=== PATIENT | female | born 1980 | race Caucasian/White ===

== ENCOUNTER 2017-01-07 14:41 | Outpatient (CLI) | payer BC ==
--- NOTE | 2017-01-07 15:21 | RAD ---
LUMBAR SPINE TWO VIEWS: History: Lumbar radiculopathy. FINDINGS: Lumbar vertebrae maintain normal height. There is a grade I to II spondylolisthesis of L5-S1 with los s of disc space at L5-S1. There is posterior spondylolysis at L5-S1. The other vertebral bodies maintain normal alignment. Disc spaces are otherwise preserved. IMPRESSION: Grade I to II spondylolisthesis at L5-S1 with loss of disc space and posterior spondylolysis at this level. POS: JOHN
--- NOTE | 2017-01-07 15:28 | CT ---
CT LUMBAR SPINE: Technique: Multiple axial tomograms were obtained through the lumbar spine with multiplanar reconstru ction. History: Lumbar radiculopathy. FINDINGS: There is a grade I spondylolisthesis at L5-S1. There is posterior spondylolysis seen bilaterally at L 5-S1. There is associated broad based disc bulge at L5-S1 which flattens the anterior thecal sac and does mildly displace both traversing S1 nerve roots. This diffuse disc bulge does extend into the for brandt bilaterally producing bilateral foraminal stenosis at L5-S1. L4-5: Mild disc bulge. Facet and ligamentous hypertrophy. Mild central canal stenosis. L3-4: Mild disc bulge. No significant central canal or foraminal stenosis. L2-3: No significant disc bulge or protrusion. L1-2: No significant disc bulge or protrusion. IMPRESSION: Mild anterolisthesis at L5-S1 with posterior spondylolysis bilaterally. Associated broad based disc b ulge at this level with bilateral foraminal stenosis. POS: JOHN
== END 2017-01-07 14:42 | disposition home or self-care (01) ==
LOC: TBSIIMAG 14:41
PROVIDERS: ATTEND Surgery
DX: M51.17 Intervertebral disc disorders with radiculopathy, lumbosacral region (principal); M47.27 Other spondylosis with radiculopathy, lumbosacral region; M43.17 Spondylolisthesis, lumbosacral region
CPT/HCPCS: 72100; 72131

== ENCOUNTER 2017-02-12 06:27 | Inpatient (IN) | payer BC ==
[2017-02-12] MEDS ORDERED: Scopolamine 1.5 mg/72 hour Patch ONE (06:33)
[2017-02-12] MEDS ORDERED: Midazolam HCl 2 mg/2 ml Vial ONE (06:35)
[2017-02-12] MEDS ORDERED: Fentanyl 100 MCG/2 ML VIAL ONE ×4 (06:35→13:11)
[2017-02-12] MEDS ORDERED: Thrombin 5000 UNITS/5 ML VIAL ONE (06:37)
[2017-02-12] MEDS ORDERED: Bacitracin Zinc Ointment 30 gm TUBE ONE (06:37)
[2017-02-12] MEDS ORDERED: Sodium Chloride 0.9% 10 ML ONE (06:37)
[2017-02-12] MEDS ORDERED: CEFAZOLIN/Water 2 GM/20 ML SYRINGE ONE (06:57)
[2017-02-12 07:17] LABS: #Eosinphils 0.2 thou/uL (0.0-0.7); #Monocytes 0.5 thou/uL (0.11-0.59); #Neutrophils 3.3 thou/uL (1.40-6.50); %Basophils 0.4 % (0.0-1.0); %Lymphocytes 32.7 % (21.0-51.0); %Monocytes 8.8 % (0.0-10.0); %Neutrophils 55.1 % (42.0-75.0); Hemoglobin 13.9 g/dL (12.0-16.0); Mean Corpuscular HGB CONC 33.8 g/dL (32.0-36.0); Mean Corpuscular Volume 91.9 fl (81.0-99.0); Mean Platelet Volume 5.7 fL (7.4-10.4); Platelet Count 366 thou/uL (130-400); RBC Distribution Width 11.3 % (11.5-14.5)
[2017-02-12 07:26] LABS: PTT 27.8 SEC (22.9-36.1); Prothrombin Time 13.6 SEC (12.0-14.7)
[2017-02-12 07:38] LABS: Anion Gap 13 mmol/L (10-20); BUN (Urea Nitrogen) 13 mg/dL (7.0-18.7); Calc. Creatinine Clearance 107 mL/min (70-130); Calcium 9.5 mg/dL (7.8-10.44); Carbon Dioxide 21 mmol/L (22-29); Chloride 111 mmol/L (98-107); Estimated GFR-MDRD 75; Glucose 101 mg/dL (70-105); Potassium 3.9 mmol/L (3.5-5.1); Sodium 141 mmol/L (136-145)
[2017-02-12] MEDS ORDERED: Fentanyl 250 MCG/5 ML VIAL ONE (08:24)
[2017-02-12] MEDS ORDERED: Meperidine HCl/PF 25 MG/ML VIAL SLOW IVP PRN (11:05)
[2017-02-12] MEDS ORDERED: Morphine Sulfate 2 MG/ML SYRINGE SLOW IVP PRN (11:05)
[2017-02-12] MEDS ORDERED: Promethazine HCl 25 MG/ML VIAL SLOW IVP PRN (11:05)
[2017-02-12] MEDS ORDERED: HYDROmorphone 2 MG/ML VIAL SLOW IVP PRN (11:05)
[2017-02-12] MEDS ORDERED: HYDROmorphone 0.5 MG/0.5 ML SYRINGE ONE ×4 (11:30→15:17)
[2017-02-12] MEDS ORDERED: Milk Of Magnesia 30 ML UDCUP PO PRN (11:40)
[2017-02-12] MEDS ORDERED: Promethazine HCl 25 MG/ML VIAL IM PRN (11:40)
[2017-02-12] MEDS ORDERED: Fleet Enema 133 ML BOT PR PRN (11:40)
[2017-02-12] MEDS ORDERED: Ondansetron HCl/PF 4 MG/2 ML Vial IVP PRN (11:40)
[2017-02-12] MEDS ORDERED: Mag-Al 1200 mg/1200 mg/30 ML UDCUP PO PRN (11:40)
[2017-02-12] MEDS ORDERED: Acetaminophen 325 MG TAB PO PRN (11:40)
[2017-02-12] MEDS ORDERED: Bisacodyl 10 MG SUPP PR PRN (11:40)
[2017-02-12] MEDS ORDERED: Morphine 4 MG/ML VIAL SLOW IVP PRN (13:00)
[2017-02-12] MEDS ORDERED: Promethazine HCl 25 MG/ML VIAL ONE (13:11)
[2017-02-12] MEDS ORDERED: Lidocaine 1% PF 5 ML VIAL ONE (13:34)
[2017-02-12] MEDS ORDERED: Glycopyrrolate 0.2 MG/ML 5 ML SYRINGE ONE (13:34)
[2017-02-12] MEDS ORDERED: ePHEDrine/0.9% NaCl/PF SYRINGE 50 mg/10 ml ONE (13:34)
[2017-02-12] MEDS ORDERED: Ondansetron HCl/PF 4 MG/2 ML Vial ONE (13:34)
[2017-02-12] MEDS ORDERED: PHENYLEPHRINE-NS 100 MCG/ML 10 ML SYRINGE ONE (13:34)
[2017-02-12] MEDS ORDERED: Dexamethasone 20 MG/5 ML VIAL ONE (13:34)
[2017-02-12] MEDS ORDERED: Propofol 200 MG/20 ML VIAL ONE (13:34)
[2017-02-12] MEDS ORDERED: Esmolol 100 MG/10 ML VIAL ONE (13:34)
[2017-02-12] MEDS ORDERED: CEFAZOLIN/Water 2 GM/20 ML SYRINGE SLOW IVP SCH ×2 (14:00→18:00)
--- NOTE | 2017-02-12 15:05 | OP ---
OR: 11. WOUND TYPE: Type 1 wound. SURGEON: Jag Yadav M.D. CASE SPECIALIST: Timothy Walden PA-C. PREPROCEDURE DIAGNOSIS: L5 on S1 grade I spondylolisthesis with pars defects resulting in lumbar sukh nosis and low back and leg pain. POSTPROCEDURE DIAGNOSES: L5 on S1 grade I spondylolisthesis with pars defects resulting in lumbar st enosis and low back and leg pain. PROCEDURES PERFORMED: 1. L5-S1 laminectomies, partial facetectomies and foraminotomies over the L5-S1 nerve root decompres nabor and left-sided L5-S1 partial diskectomy. 2. Placement of pedicle screw gianna fixation L5-S1 bilaterally for stabilization. 3. Arthrodesis L5-S1 over the posterolateral regions with local bone autograft obtained from same in cision, and BMP in the posterolateral gutters for lumbar fusion L5-S1. DESCRIPTION OF PROCEDURE: After informed consent was obtained from the patient, the patient brought to OR 11. Proper patient pause and identification was carried out. She was placed under excellent g eneral endotracheal anesthesia and positioned prone on the operating room table. All appropriate poi nts were padded. We identified the L5-S1 dorsal spines and lamina and this region was sterilely joaquin nsed, prepared, and draped following the marking of the skin. After proper patient pause and identif ication, the wound was then opened with a combination of sharp, monopolar and blunt dissection, and p roceeded over the L5-S1 segments. It was evident that portion of the posterior arch of S1 was missin g similar to one might seen spina bifida occulta and was essentially incompetent. This perhaps may h ave led to the patient having decreased posterior stabilization and subsequent L5 on S1 spondylolisth esis and spondylolysis. Nevertheless following exposure of the L5-S1 facet complexes and the transve rse process and sacral ala of the S1 segments, we were satisfied with our exposure at that point. We then performed an L5-S1 laminectomy with removal of the L5-S1 facet complexes, enough to ensure exce llent freedom throughout the course of the L5 nerve roots bilaterally and the S1 nerve roots along wi th the common dural tube. A small amount of disk material was able to be removed as well at the left L5 axilla and I assessed this segment to see if any interbody spacer could be placed without distrac tion. The endplates were essentially touching, which were made placement of interbody spacer difficu lt at that point and as such, we proceeded to do our posterolateral fusion for arthrodesis. Using st wilkinson anatomic technique, I placed L5 and S1 pedicle screws and rods were placed and satisfied with both gross and fluoroscopic visualization of our construct as well as CT spine. Copious irrigation o ccurred. Rods were final tightened. Decortication occurred over the posterolateral regions bilatera lly and the placement of BMP and local bone autograft obtained from same incision was done for arthro desis. A small amount of DuraSeal was placed over the dura to protect it, although there was no CSF leak. Hemostasis was maximized throughout. The wound had been copiously irrigated and was closed in anatomic layers. The patient then emerged from anesthesia.
[2017-02-12] MEDS: Cyclobenzaprine 10 MG TAB PO PRN (17:21)
[2017-02-12] MEDS: CEFAZOLIN/Water 2 GM/20 ML SYRINGE SLOW IVP SCH (17:43)
[2017-02-12] MEDS: Sodium Chloride 0.9% 1,000 ML IV SCH (18:09)
[2017-02-12] MEDS: HYDROcodone/Acetaminophen 7.5/325 mg Tablet PO PRN (22:21)
[2017-02-13] MEDS: CEFAZOLIN/Water 2 GM/20 ML SYRINGE SLOW IVP SCH (01:12)
[2017-02-13] MEDS: CEFAZOLIN 1 GM, Syringe 2.5 ML in Sterile Water 7.5 ML SLOW IVP SCH ×3 (01:44→19:33)
[2017-02-13] MEDS: Sodium Chloride 0.9% 1,000 ML IV SCH ×2 (01:56→16:38)
[2017-02-13] MEDS: Cyclobenzaprine 10 MG TAB PO PRN ×3 (02:04→19:31)
[2017-02-13] MEDS: HYDROcodone/Acetaminophen 7.5/325 mg Tablet PO PRN ×5 (02:50→20:45)
[2017-02-13] MEDS: traMADol HCl 50 MG TAB PO PRN ×3 (06:00→19:31)
[2017-02-13] MEDS: [UNRECOGNIZED DRUG - OTHER] PO SCH (06:02)
[2017-02-13] MEDS: Guanfacine Hcl [Guanfacine Hcl Er] 1 MG PO SCH (08:44)
[2017-02-13] MEDS: Desvenlafaxine Succinate [Pristiq] 100 MG PO SCH (08:44)
--- NOTE | 2017-02-13 08:46 | PRG ---
DATE OF SERVICE: 02/13/2017 Ms. Olivas is doing well postoperative day 1 following L5-S1 decompression and fusion. She has elan e left buttock pain, not surprising given the amount of compression she had on her left L5 nerve root . We achieved satisfactory decompression; however, bilateral L5 and S1 nerve roots along with the co mmon dural tube. We will continue to work on mobilization today. Her strength is good.
[2017-02-13] MEDS: Thyroid,Pork 90 MG TAB PO SCH (08:47)
[2017-02-13] MEDS ORDERED: Guanfacine Hcl [Guanfacine Hcl Er] 1 MG PO SCH (09:00)
[2017-02-13] MEDS ORDERED: FLU VACC QS2017-18 36 mo. & older 0.5 ML SYRINGE IM ONE (09:00)
[2017-02-13] MEDS ORDERED: [UNRECOGNIZED DRUG - OTHER] PO SCH (09:00)
[2017-02-13] MEDS ORDERED: [UNRECOGNIZED DRUG - OTHER] PO SCH (09:00)
[2017-02-13] MEDS ORDERED: Gabapentin 100 MG CAP PO SCH (10:00)
[2017-02-13] MEDS: Gabapentin 100 MG CAP PO SCH ×2 (16:35→20:45)
[2017-02-14] MEDS: HYDROcodone/Acetaminophen 7.5/325 mg Tablet PO PRN ×4 (02:41→18:41)
[2017-02-14] MEDS: Sodium Chloride 0.9% 1,000 ML IV SCH ×2 (03:47→18:48)
[2017-02-14] MEDS: [UNRECOGNIZED DRUG - OTHER] PO SCH (06:10)
[2017-02-14] MEDS: Cyclobenzaprine 10 MG TAB PO PRN ×2 (06:49→15:03)
--- NOTE | 2017-02-14 09:42 | PRG ---
DATE OF SERVICE: 02/14/2017 This is a subsequent inpatient progress note. SUBJECTIVE: Ms. Olivas is now postoperative day #2, having undergone a posterior L5-S1 laminectomy and fusion. The patient states she is feeling better today. She has been working with therapy. Karin troy has been eating. Pain control remains an issue for her. The main issue is incisional back pain. She said the left buttock pain she experienced yesterday has improved. She has been started on gabap entin. She remains at neurologic baseline with good strength in the bilateral lower extremities. Karin troy has shower today. I would like her dressing to be changed today. We will keep her for one more ov ernight to allow better pain control with the plans to discharge her in the morning. Please call [facility] any changes or questions or concerns. This is Timothy Walden PA-C dictating for Dr. Jag Yadav.
[2017-02-14] MEDS: Gabapentin 100 MG CAP PO SCH ×3 (10:08→21:06)
[2017-02-14] MEDS: Thyroid,Pork 90 MG TAB PO SCH (10:08)
[2017-02-14] MEDS: Guanfacine Hcl [Guanfacine Hcl Er] 1 MG PO SCH (10:09)
[2017-02-14] MEDS: Desvenlafaxine Succinate [Pristiq] 100 MG PO SCH (10:09)
[2017-02-15] MEDS: Cyclobenzaprine 10 MG TAB PO PRN ×2 (01:00→09:28)
[2017-02-15] MEDS: HYDROcodone/Acetaminophen 7.5/325 mg Tablet PO PRN ×3 (01:00→11:06)
[2017-02-15] MEDS: [UNRECOGNIZED DRUG - OTHER] PO SCH (06:26)
[2017-02-15] MEDS: Sodium Chloride 0.9% 1,000 ML IV SCH (07:09)
[2017-02-15] MEDS: Gabapentin 100 MG CAP PO SCH (09:19)
[2017-02-15] MEDS: Desvenlafaxine Succinate [Pristiq] 100 MG PO SCH (09:20)
[2017-02-15] MEDS: Thyroid,Pork 90 MG TAB PO SCH (09:20)
[2017-02-15] MEDS: Guanfacine Hcl [Guanfacine Hcl Er] 1 MG PO SCH (09:21)
[2017-02-15 12:14] VITALS: BP 117/68; TEMP 98.7
--- NOTE | 2017-02-15 14:44 | PRG ---
DATE OF SERVICE: 02/15/2017 SUBJECTIVE: Ms. Olivas is doing well. She has met criteria for dismissal. At this time, we went over postoperative issues and neurologically she has excellent strength.
--- NOTE | 2017-02-16 14:32 | DIS ---
DATE OF ADMISSION: 02/12/2017 DATE OF DISCHARGE: 02/15/2017 Timothy Walden PA-C dictating for Jag Yadav MD DISCHARGE DIAGNOSES: 1. Low back pain with leg pain. 2. L5-S1, grade 1, spondylolisthesis with pars defect. 3. Lumbar stenosis. HOSPITAL COURSE: Ms. Olivas was admitted on 02/12/2017 to undergo an L5-S1 laminectomy with bread dough mixer ior L5-S1 lumbar fusion. The patient's surgery was without complication, but she required several ov ernight stay in the hospital for adequate pain control. At the time of discharge, she was ambulating , voiding spontaneously, tolerating a regular diet. Her pain was under control with oral medications . She was started on gabapentin while in the hospital. She did work with physical therapy. She did complain of some left buttock pain postoperatively, but at the time of discharge, this was significa ntly improved. Appropriate outpatient followups and patient education were provided to the patient. Again, at the time of discharge, she was very pleased with her outcome postoperatively and understoo d to call the office with any additional questions or concerns prior to our next followup appointment .
--- NOTE | 2017-02-19 19:35 | EKG ---
Test Reason : PREOP Blood Pressure : / mmHG Vent. Rate : 079 BPM Atrial Rate : 079 BPM P-R Int : 142 ms QRS Dur : 086 ms QT Int : 364 ms P-R-T Axes : 062 054 039 degrees QTc Int : 417 ms Normal sinus rhythm Normal ECG No previous ECGs available Confirmed by TRA JUAREZ (2) on 02/19/2017 7:35:16 PM Referred By: KIMBERLI Confirmed By:TRA JUAREZ
== END 2017-02-15 12:14 | disposition home or self-care (01) | DRG 460 ==
LOC: SURG A 06:27 → EDSTATUS 14:26 → SURG A 16:44
PROVIDERS: ADMIT Surgery; ATTEND Surgery
PROC: 0SG3071 Fusion of Lumbosacral Joint with Autologous Tissue Substitute, Posterior Approach, Posterior Column, Open Approach (ICD-10-PCS; principal; 2017-02-12)
PROC: 01NB0ZZ Release Lumbar Nerve, Open Approach (ICD-10-PCS; 2017-02-12)
PROC: 0SB20ZZ Excision of Lumbar Vertebral Disc, Open Approach (ICD-10-PCS; 2017-02-12)
DX: M43.17 Spondylolisthesis, lumbosacral region (principal); M10.9 Gout, unspecified; M47.27 Other spondylosis with radiculopathy, lumbosacral region; M48.061 Spinal stenosis, lumbar region without neurogenic claudication; Z90.710 Acquired absence of both cervix and uterus; Z90.49 Acquired absence of other specified parts of digestive tract
CPT/HCPCS: 36415; 76001; 80048; 85025; 85610; 85730; 93005; 93010; A4216; C1713; G8978-GP-CL; G8979-GP-CJ; J0690; J1100; J1170; J2001; J2250; J2270; J2405; J2550; J2704; J3010; J3370; J3490

== ENCOUNTER 2017-04-01 08:16 | Outpatient (CLI) | payer BC ==
--- NOTE | 2017-04-01 08:43 | RAD ---
LUMBAR SPINE TWO VIEWS: History: Low back pain. FINDINGS/IMPRESSION: Comparison is made with exam of 01-07-17. Interval changes of spinal fusion with bilateral pedicle screws is seen at L5-S1 level. The grade I-I I spondylolistheses at L5-S1 level with associated loss of disc space is stable. Vertebral body heigh ts are maintained. Metallic hardware is intact. No perihardware lucency is noted to suggest loosening . POS: JOHN
== END 2017-04-01 08:17 | disposition home or self-care (01) ==
LOC: TBSIIMAG 08:16
PROVIDERS: ATTEND Surgery
DX: M54.5 Low back pain (principal)
CPT/HCPCS: 72100

== ENCOUNTER 2019-11-23 08:08 | Outpatient (CLI) | payer BC ==
--- NOTE | 2019-11-23 09:01 | RAD ---
Exam: Lumbar spine 4 views HISTORY: Lumbar radiculopathy. Right leg numbness. Previous fusion. FINDINGS: Visualized bony pelvis is intact Bilateral transpedicular screws at L5-S1. No perihardware lucency. 5 lumbar type vertebra. Lumbar spine vertebral body height is maintained. No fracture. Moderate loss of disc space height at L5-S1. Spondylolisthesis: L3-L4: Neutral 2.5 mm of retrolisthesis; flexion 2.8 mm of retrolisthesis; extension 2 mm of retrolis thesis L5-S1: Neutral 9.2 mm of anterolisthesis; flexion 9 mm of anterolisthesis; extension 10 mm of anterol isthesis IMPRESSION: 1. L5-S1 fusion. 2. Spondylolisthesis as detailed above
--- NOTE | 2019-11-23 09:12 | CT ---
Exam: CT lumbar spine without contrast COMPARISON: 01/07/2017. HISTORY: Previous lumbar fusion. Right-sided symptoms. FINDINGS: Visualized intra-abdominal structures do not demonstrate any acute abnormality. Possible previous hys terectomy. Correlate with surgical history. Right-sided ovary measures 2.3 x 2.6 cm. Appropriate attenuation of the paraspinal muscles. Five lumbar type vertebra. Lumbar spine vertebral body height is maintained. There is no fracture. Sacral ala are preserved. Presacral fat is preserved. There are bilateral pars defects at L5. There is 0.8 cm of anterolisthesis of L5 upon S1. Bilateral transpedicular screws at L5 and S1. No perihardware lucency. Bone island in the right iliac bone. Vacuum joint phenomenon in bilateral SI joints. Limited evaluation of the contents of the central spinal canal and neural foramina due to technique. T11-T12 and T12-L1: No significant central canal stenosis or significant neural foraminal narrowing. L1-L2: Broad-based disc bulge minimally contacts the ventral thecal sac. No significant central canal stenosis. Patent bilateral neural foramina L2-L3: Broad-based disc bulge minimally contacts the ventral thecal sac. Mild central canal stenosis. Patent bilateral neural foramina L3-L4: Broad-based disc bulge abuts the thecal sac. Mild stenosis of the thecal sac. There is narrowi ng of the left subarticular zone with presumed partial obscuration/mass effect of the traversing left L4 nerve root. Mild bilateral foraminal narrowing predominantly due to disc material. L4-L5: Broad-based disc bulge abuts the thecal sac. There is bilateral facet hypertrophy. At least mi ld central canal stenosis. Posterior laminectomy defect is identified. Mild to moderate bilateral foraminal narrowing predominantly due to disc material. L5-S1: Limited evaluation due to metallic susceptibly artifact. No high-grade central canal stenosis. There is posterior laminectomy defect. Mild to moderate bilateral foraminal narrowing. IMPRESSION: 1. Uncomplicated lumbar fusion at L5-S1. No perihardware lucency. 2. Grade 1 anterolisthesis of L5 upon S1. Mild to moderate bilateral neural foraminal narrowing at L5 -S1. 3. Broad-based disc bulge at L3-L4, L4-L5 as detailed above. 4. Mild to moderate bilateral foraminal narrowing at L4-L5. Transcribed Date/Time: 11/23/2019 9:17 AM
[2019-11-23] MEDS ORDERED: Magnevist 469MG/ML 20 ML VIAL ONE (09:19)
--- NOTE | 2019-11-23 09:42 | MRI ---
MRI of thelumbar spine with and without contrast: 11/23/2019 COMPARISON:None available HISTORY:Right leg numbness, low back pain, prior lumbar spine surgery TECHNIQUE: Multiplanar multisequence MR imaging of thelumbar spine with and without contrast Findings:Bilateral pedicle screws with vertically oriented interlocking rods noted at the L5-S1 level . The sagittal STIR imaging demonstrates no focal area of osseous marrow edema. Anterolisthesis at the L5-S1 level noted measuring 9 mm. On the basis of 5 lumbar type vertebral bodies, the conus medullaris terminates at the T12-L1 level. T12-L1: Intervertebral disc height and signal intensity within normal limits with no significant cent ral canal or neural foraminal stenosis. L1-2: Intervertebral disc height and signal intensity within normal limits with no significant centra l canal or neural foraminal stenosis. L2-3: Mild bilateral facet hypertrophy, left greater than right. Intervertebral disc height and signa l intensity within normal limits with no significant central canal or neural foraminal stenosis. L3-4: There is partial disc desiccation and mild disc space narrowing. There is mild bilateral facet hypertrophy with no significant central canal or neural foraminal stenosis. L3-4: Partial disc desiccation and mild disc space narrowing with mild bilateral facet hypertrophy. N o significant central canal or neural foraminal stenosis. L5-S1: Bilateral laminectomy changes are noted with no central canal stenosis. Bilateral facet hypert rophy is present. Hardware artifact limits detailed assessment of the L5-S1 neural foramina. Moderate bilateral neural foraminal stenosis is suspected, left greater than right. The postcontrast imaging demonstrates no abnormal enhancement involving the contents of the thecal sa c, the imaged osseous structures or the intervertebral discs. Imaged retroperitoneal structures demonstrate no acute findings. IMPRESSION:Lumbar spine postoperative and degenerative change as detailed above, most significant fin ding being bilateral neural foraminal stenosis at L5-S1.
== END 2019-11-23 08:09 | disposition home or self-care (01) ==
LOC: TBSIIMAG 08:08
PROVIDERS: ATTEND Surgery
DX: M51.16 Intervertebral disc disorders with radiculopathy, lumbar region (principal); M54.5 Low back pain; M43.17 Spondylolisthesis, lumbosacral region; M48.07 Spinal stenosis, lumbosacral region; M48.061 Spinal stenosis, lumbar region without neurogenic claudication; M47.27 Other spondylosis with radiculopathy, lumbosacral region; Z98.1 Arthrodesis status
CPT/HCPCS: 72110; 72131; 72158; A9579